=== PATIENT | female | born 1940 | race Caucasian/White ===

== ENCOUNTER 2016-11-01 | Day surgery (SDC) | payer MEDICARE, OTHER ==
[~2016-11-01] MED LIST: ALPR0.5T8 PO; AMLO5TAB2 PO; ASPI325T32 PO; CALC0.257 PO; CHOL10008 PO; FRSM80T PO; LINA5TAB PO; LOVA40TA PO; METO100T3 PO; VENL150C98 PO
[2016-12-18] MEDS ORDERED: APIX5TAB PO (14:43)
[2016-12-18] MEDS ORDERED: SEVE800T7 PO (14:44)
== END 2016-11-01 23:59 | disposition home or self-care (01) ==
DX: N18.6 End stage renal disease (principal)